=== PATIENT | male | born 1950 | race Caucasian/White ===

== ENCOUNTER 2020-12-01 19:26 | Inpatient (IN) | payer MEDICARE, BC, SELFPAY ==
[2020-12-01 19:27] VITALS: BP 81/44; PULSE 85; RESP 16; TEMP 36.9; O2SAT 100; BMI 33.9
[2020-12-01] MEDS: 0.9% Normal Saline 1,000 ML 1000 ML IV (19:50)
--- NOTE | 2020-12-01 19:51 | EKG12_ITS ---
Test Reason : DYSRHYTHMIA Blood Pressure : / mmHG Vent. Rate : 081 BPM Atrial Rate : 081 BPM P-R Int : 174 ms QRS Dur : 094 ms QT Int : 396 ms P-R-T Axes : 020 013 059 degrees QTc Int : 460 ms Normal sinus rhythm Nonspecific T wave abnormality Abnormal ECG Confirmed by VALDO BRINK, DIMAS ([id number]), material expeditor CAMERON WHALNE ([id number]) on 12/04/2020 8:58:30 AM Referred By: LIZZ Confirmed By:DIMAS LYLE MD
[2020-12-01 20:27] LABS: Absolute Lymphocyte Count 3.44 X10^3/uL (0.83-4.51); Absolute Neutrophil Count 14.2 X10^3/uL (2.0-7.7); Basophil# 0.11 X10^3/uL; Basophil% 0.5 % (0-1); Eosinophil# 0.29 X10^3/uL; Eosinophils% 1.4 % (0-5); Hematocrit 45.5 % (40-54); Hemoglobin 15.4 g/dL (13.0-16.5); Lymphocyte # 3.44 X10^3/ul (0.83-4.51); Mean Corp Hgb Conc 33.8 g/dL (32-36); Mean Corpuscular Hgb 30.3 pg (27.0-32.0); Mean Corpuscular Volume 89.4 fL (80-94); Mean Platelet Vol. 9.4 fl (6.2-12.0); Monocyte# 2.03 X10^3/uL; NRBC Flagged by Analyzer 0 % (0-5); Neutrophil # 14.24 X10^3/uL (2.7-7.7); Neutrophil % 70.3 % (47-70); POSITIVE DIFFERENTIAL YES; Platelet Count 347 K/mm3 (150-450); RBC Distribution Width CV 13.7 % (11.6-14.6); RBC Distribution Width SD 44.6 fl (35.1-43.9); Red Blood Count 5.09 M/mm3 (4.6-6.2); White Blood Count 20.3 K/mm3 (4.4-11.0)
[2020-12-01 20:42] VITALS: BP 85/53; PULSE 73; RESP 11; O2SAT 97
[2020-12-01] MEDS: 0.9% Normal Saline 1,000 ML 999 ML IV ×2 (20:42→22:41)
[2020-12-01 20:50] LABS: Differential Indicated SCAN CRITERIA MET
[2020-12-01 21:03] LABS: Lactic Acid 1.5 mmol/L (0.4-1.9)
[2020-12-01 21:10] VITALS: BP 96/56; PULSE 74; RESP 15; O2SAT 98
[2020-12-01 21:13] LABS: Differential Comment SCANNED
[2020-12-01 21:16] LABS: ALB/GLOB Ratio 0.9 RATIO (0.9-2.4); AST(SGOT) 17 U/L (15-37); Alanine Aminotransfer ALT/SGPT 26 U/L (16-61); Albumin, Serum 3.6 g/dL (3.2-5.0); Alkaline Phosphatase 107 U/L (45-117); Anion Gap 17 (5-15); BUN 96 mg/dL (7-18); BUN/Creat Ratio 12.5 RATIO (10-20); Chloride 94 mmol/L (98-107); Creatinine, Serum 7.68 mg/dL (0.70-1.30); EST Glomerular Filtration Rate 8 mL/min (>60); Est Glom Filt Rate - Afr Amer 9 mL/min (>60); Estimated Creatinine Clearance 10.24 ml/min; Globulin 4.2 g/dL (2.2-4.2); Glucose 98 mg/dL (74-106); Potassium 3.8 mmol/L (3.5-5.1); Protein, Total 7.8 g/dL (6.4-8.2); Sodium Level 128 mmol/L (136-145)
--- NOTE | 2020-12-01 21:23 | ED.RN ---
creat of 7.6 reported to . verbalizes understanding
[2020-12-01] MEDS: Lidocaine Jelly 2% 20 ML Syringe (URO-JET) 20 APPLIC TOPICAL (21:56)
--- NOTE | 2020-12-01 22:19 | ED.DCSUM_ITS ---
- ER Visit Summary Date of Service: 12/01/20 Chief Complaint: Diarrhea History of Present Illness: The patient is a [address] Uribe. He reports he has diarrhea that began 4 days ago. States he is having this approximately 6 times per day. Denies any blood in stools or black tarry stools. He denies abdominal pain. States he had nausea without vomiting. Patient denies sick contacts. Has not been camping out of the country. No possible bad food exposure. Does not drink well water. No recent antibiotic use. Patient reports that he is lightheaded. He has not passed out. Also complains of generalized weakness. Physical Examination: Vitals: 98.5, 81/44, 85, 16, 100% on room air which not hypoxic. General: Well-nourished and well-developed. Head: Normocephalic atraumatic. Neck: Supple, no lymphadenopathy. No JVD. Nontender. Cardiovascular: Regular rate and rhythm. No murmurs. Respiratory: No respiratory distress. Clear to auscultation bilaterally. Abdominal: Soft, nontender, nondistended, normal bowel sounds. No guarding, rebound, or peritoneal signs. Back: Nontender. Extremities: Nontender, no edema. Skin: Normal color, no rash. Neurologic: Alert and oriented ?3. Cranial nerves II through XII are intact. Normal strength and sensation. Psych: Normal affect. Test Results: CBC shows a white count of 20.3 with 17 segmented neutrophils. Chem-7 shows a sodium 128, chloride 94, CO2 17, BUN 96, creatinine 7.68. Troponin is negative. Lactic acid is 1.5. Emergency Department Course and Treatment: Patient was given 2 L of normal saline. Systolic blood pressure is now 105. He had a Ferreira catheter placed to rule out postobstructive source of his renal failure. He has only had 100 cc of urine out. Treatment Plan: Patient was discussed with Dr. Alvarenga. He will be admitted to the hospital for further evaluation and treatment. Disposition: Admitted in improved condition. Impression: 1. Acute renal failure. 2. Diarrhea. 3. Leukocytosis. This note was generated with [employer] software. It may contain incorrect words, spelling, and punctuation that were not noted in review of the chart prior to signing ED Disposition - Plan for ED Patient: Referrals: Ankush Uribe [Primary Care Provider] -
[2020-12-01 22:42] VITALS: BP 107/61; PULSE 79; RESP 18; TEMP 36.8; O2SAT 97
[2020-12-01 23:16] VITALS: BMI 32.7
--- NOTE | 2020-12-01 23:23 | US_ITS ---
STUDY: RENAL ULTRASOUND - COMPLETE REASON FOR EXAM: Male, 69 years old. get[place]w TECHNIQUE: Ultrasound evaluation of the kidneys was performed with real-time and static medina-scale imaging. COMPARISON: None. FINDINGS: RIGHT KIDNEY: Normal location of the right kidney, which is normal in size. The right kidney measures 12.8 cm x 5.5 cm x 6 cm. There is a normal cortex of the right kidney. The renal cortex measures 2.8 cm. There is no right renal mass or cyst. There are no right renal calculi. There is no right hydronephrosis. DISTAL RIGHT URETER: There is non-visualization of the distal right ureter. There is no demonstrated right ureterovesical junction calculus. There is no demonstrated right ureteral jet. LEFT KIDNEY: Normal location of the left kidney, which is normal in size. The left kidney measures 11.6 x 5.3 cm x 6.1 cm. There is a normal cortex of the left kidney. The renal cortex measures 2.1 cm. There is no left renal mass or cyst. There are no left renal calculi. There is no left hydronephrosis. DISTAL LEFT URETER: There is non-visualization of the distal left ureter. There is no demonstrated left ureterovesical junction calculus. There is no demonstrated left ureteral jet. BLADDER: The urinary bladder was not adequately distended for appropriate assessment. US/Kidney and Bladder IMPRESSION: Normal ultrasound of the kidneys . Electronically Signed: Beck Ramsey MD at 13:17 EDT , Service support ,
[2020-12-01 23:46] VITALS: BP 110/62; PULSE 80; RESP 16; TEMP 36.7; O2SAT 98
--- NOTE | 2020-12-01 23:50 | PCM.HP.STD ---
Problem List (1) LAKSHMI (acute kidney injury) Status: Acute (2) Diarrhea Status: Acute (3) Dehydration Status: Acute (4) Hypotension Status: Acute History of Present Illness Date of Admission: 12/01/20 Chief Complaint: fatigue The patient is a 69 year old M with a significant history of hypertension who presents emergency department with progressively worsening fatigue that began about 4 days prior to presentation. Patient reported to his daughter who is a physician that he has not had this level of fatigue before. Further patient has had diarrhea. He report at least 6 loose stools per day. He has poor appetite. He denied nausea or vomiting. Reports decreased urine output and decreased intake. Past Medical History Medical History: Medical History (Last Updated 12/01/20 @ 23:[address] Abdoulaye Alvarenga MD) HTN (hypertension) I10 Allergies No Known Allergies Allergy (Verified 12/01/20 19:41) Home Medications: Ambulatory Orders Medication Instructions Recorded Lisinopril [Zestril] 20 mg PO DAILY 12/01/20 Multivitamin [One-Daily 1 tablet PO DAILY 12/01/20 Multi-Vitamin] Surgical History: - - Vasectomy Smoking Status: Never smoker Tobacco Use: Non-smoker Alcohol: Occasional - *Family History Maternal History Items: Heart Disease, Hypertension Paternal History Items: Cancer - Prostate Review of Systems Constitutional: Reports: Fatigue. Denies: Chills, Fever, Weight Change HEENT: Denies: Head Aches, Sinus Congestion, Sinus Drainage Cardiovascular: Denies: Chest Pain, Palpitations Respiratory: Denies: Cough, Shortness of breath at rest, Sputum production Gastrointestinal: Reports: Diarrhea. Denies: Abdominal Pain, Nausea, Vomiting Genitourinary: Denies: Dysuria Musculoskeletal: Denies: Joint Pain, Joint Tenderness Skin: Denies: Rash, Wounds Neurological: Denies: Numbness, Tingling, Focal weakness Psychiatric: Denies: Anxiety, Depression, Homicidal Ideations, Suicidal Ideations Hematologic/ Lymphatic: Denies: Easy Bruising, Easy Bleeding VTE Information - Inpt Only VTE Present on Admission: No VTE Mechan Device Prophylaxis: None VTE Pharm Prophylaxis ordered?: Yes Patient Problems: Active and Suspected Problems (Last Updated 12/01/20 @ 23:[address] Abdoulaye Alvarenga MD) LAKSHMI (acute kidney injury) (Acute) Diarrhea (Acute) Dehydration (Acute) Hypotension (Acute) - Physical Exam Vitals/I&O's: Vital Signs Temp Pulse Resp BP Pulse Ox 98.0 F 80 16 110/62 98 12/01/20 23:46 12/01/20 23:46 12/01/20 23:46 12/01/20 23:46 12/01/20 23:46 Oxygen Delivery Method Room Air Weight: 109.406 kg Body Mass Index (BMI) 32.7 Intake and Output for Last 24 Hours 11/29/20 11/30/20 12/01/20 23:59 23:59 23:59 Intake Total 3000 / 3000 Balance 3000 / 3000 General: Alert, Oriented x3, Cooperative HEENT: Atraumatic, PERRLA, EOMI, Normocephalic Neck: Supple, No JVD, Negative Carotid Bruits Lungs: Clear to auscultation, Normal air movement Cardiovascular: Regular rate, No murmurs Abdomen: Bowel Sounds Present, Soft, Non Tender Extremities: No edema, Capillary Refill Less than 3 Seconds Skin: No rashes, No breakdown Musculoskeletal: No Tenderness to Palpation of Joints or Extremities Neurological: Cranial nerves II-XII grossly intact Psych/Mental Status: Normal Affect, Appropriate Microbiology Past 72 Hours 12/01/20 19:50 Mucosa - Nose SARS-CoV-2 Antigen (Rapid) - Final Laboratory Results 12/01/20 20:15: WBC 20.3 H, RBC 5.09, Hgb 15.4, Hct 45.5, MCV 89.4, MCH 30.3, MCHC 33.8, RDW Std Deviation 44.6 H, RDW Coeff of Genna 13.7, Plt Count 347, MPV 9.4, Immature Gran % (Auto) 0.800, Neut % (Auto) 70.3 H, Lymph % (Auto) 17.0 L, [place] % (Auto) 10.0, Eos % (Auto) 1.4, Baso % (Auto) 0.5, Absolute Neuts (auto) 14.2 H, Absolute Lymphs (auto) 3.44, Nucleated RBC % 0, Differential Comment SCANNED, Diff Path Review December12/01/20 20:15: Sodium 128 L, Potassium 3.8, Chloride 94 L, Carbon Dioxide 17.0 L, Anion Gap 17 H, BUN 96 H, Creatinine 7.68 H*, Estim Creat Clear Calc 10.24, Est GFR (MDRD) Af Amer 9 L, Est GFR (MDRD) Non-Af 8 L, BUN/Creatinine Ratio 12.5, Glucose 98, Calcium 9.0, Total Bilirubin 0.30, AST 17, ALT 26, Alkaline Phosphatase 107, Total Protein 7.8, Albumin 3.6, Globulin 4.2, Albumin/Globulin Ratio 0.9 12/01/20 20:15: Lactic Acid 1.5 12/01/20 20:39: Troponin I < 0.015 Current Medications Acetaminophen (Acetaminophen 325 Mg Tablet) 650 mg PO Q6H PRN PRN PRN Reason: Pain Score 1-10/Temp > 100.7 F Heparin Sodium (Porcine) (Heparin Injection (Vial) 5,000 Unit/Ml Vial) 5,000 unit SC Q8 MEGAN Sodium Chloride () 1,000 mls @ 100 mls/hr IV .Q10H MEGAN Sodium Chloride () 250 mls @ 15 mls/hr IV .[id number] PRN PRN Reason: Saline Flush Melatonin (Melatonin 3 Mg Tablet) 3 mg PO QHS PRN PRN PRN Reason: INSOMNIA Ondansetron HCl (Ondansetron 4 Mg/2 Ml Vial) 4 mg IV Q8H PRN PRN PRN Reason: NAUSEA/VOMITING Sodium Chloride (0.9% Saline Lock 10 Ml Syringe) 10 - 40 ml IV UD PRN PRN Reason: SALINE FLUSH Assessment/Plan All Active Problems (Last Updated 12/01/20 @ 23:[address] Abdoulaye Alvarenga MD) LAKSHMI (acute kidney injury) (Acute) Diarrhea (Acute) Dehydration (Acute) Hypotension (Acute) LAKSHMI On Presentation creatinine was at 7.68. His daughter who is a physician and who reviewed the patient outpatient labs reported that patient creatinine in May 2020 was 1.08. Urine is 96. BUN over creatinine is 12.5. Community records were reviewed. No creatinine on file except what daughter presented. Likely prerenal and trending to intrinsic renal. Received 2 L normal saline bolus at emergency department. Discussed emergent department to give another 1 L bolus of normal saline. We will put patient on normal saline 100 MLS per hour. Avoid nephrotoxins. Hold home lisinopril Urine electrolytes ordered Ultrasound of kidney and bladder ordered. Acute Diarrhea Enteric pathogen panel and C. difficile ordered emergency department; follow. Hypovolemic hyponatremia Sodium of 126 on presentation IV hydration as above Trend BMP Hypotension Likely secondary to dehydration IV hydration as above Trend blood pressures. Hold home lisinopril. Leukocytosis Likely secondary to dehydration Trend CBC DVT prophylaxis Subcutaneous heparin ordered. Inpatient E&M: 25246 Init Hosp L3
[2020-12-01] MEDS: 0.9% Normal Saline 1,000 ML 100 ML IV (23:53)
[2020-12-02 00:41] LABS: Urine Sodium 14 mmol/L (Not Establ.)
[2020-12-02] MEDS: Heparin Injection (Vial) 5,000 UNIT/ML VIAL 5000 UNIT SC ×3 (06:50→21:06)
[2020-12-02 07:48] LABS: Anion Gap 16 (5-15); BUN 95 mg/dL (7-18); BUN/Creat Ratio 14.2 RATIO (10-20); Calcium,Total 8.2 mg/dL (8.5-10.1); Chloride 103 mmol/L (98-107); Creatinine, Serum 6.69 mg/dL (0.70-1.30); EST Glomerular Filtration Rate 9 mL/min (>60); Est Glom Filt Rate - Afr Amer 11 mL/min (>60); Estimated Creatinine Clearance 11.76 ml/min; Glucose 85 mg/dL (74-106); Potassium 3.8 mmol/L (3.5-5.1); Sodium Level 134 mmol/L (136-145)
[2020-12-02 08:38] VITALS: BP 91/53; PULSE 76; RESP 18; TEMP 36.7; O2SAT 95
[2020-12-02] MEDS: 0.9% Normal Saline 1,000 ML 100 ML IV (08:46)
[2020-12-02 09:09] VITALS: O2SAT 93
[2020-12-02 10:49] LABS: Absolute Lymphocyte Count 2.92 X10^3/uL (0.83-4.51); Absolute Neutrophil Count 12.7 X10^3/uL (2.0-7.7); Basophil# 0.09 X10^3/uL; Basophil% 0.5 % (0-1); Differential Indicated SCAN CRITERIA MET; Eosinophil# 0.19 X10^3/uL; Eosinophils% 1.1 % (0-5); Hematocrit 44.5 % (40-54); Hemoglobin 13.7 g/dL (13.0-16.5); Lymphocyte # 2.92 X10^3/ul (0.83-4.51); Lymphocyte % 16.2 % (19-41); Mean Corp Hgb Conc 30.8 g/dL (32-36); Mean Corpuscular Volume 94.3 fL (80-94); Mean Platelet Vol. 9.4 fl (6.2-12.0); Monocyte# 1.91 X10^3/uL; Monocyte% 10.6 % (0-10); NRBC Flagged by Analyzer 0 % (0-5); Neutrophil # 12.72 X10^3/uL (2.7-7.7); Neutrophil % 70.8 % (47-70); POSITIVE COUNT YES; POSITIVE DIFFERENTIAL YES; Platelet Count 209 K/mm3 (150-450); RBC Distribution Width SD 48.2 fl (35.1-43.9); Red Blood Count 4.72 M/mm3 (4.6-6.2)
--- NOTE | 2020-12-02 11:15 | CASEMGMT ---
RN GUI Face to Face with patient for initial transition planning/care coordination assessment. RN CM introduced self and role at [facility]. Patient lying in bed, alert and oriented. Patient willing to participate in assessment and is able to answer all questions appropriately. Care providers, pharmacy, and demographics verified. Patient wishes to discharge home, denies need for home health at this time. Patient states he has no further needs or concerns at this time. CM to follow for discharge planning needs that may arise. PCP: Rony Specialists: none Preferred Pharmacy: [facility] Insurance: Alexandra LYONS Prescription Benefit: yes Living Will/HPOA: none LNOK: daughter Living Arrangements: Patient lives in a basement suite in daughter's home with no steps to enter. Patient states he is independent at home. Transportation: self/daughter DME/HHC: Patient denies DME or previous HHC. Disposition Plan: Patient to discharge home with family support and follow-up plans in place. Veronica MCGEE, RN, CM
--- NOTE | 2020-12-02 11:19 | PCM.PN.HOSP ---
Subjective Subjective: Feels a little bit better today, he didnt get any sleep overnight and he does want to stay here any longer than he has to. No issues overnight Objective Data Objective Data Vital Signs: Vital Signs Temp Pulse Resp BP Pulse Ox 98.0 F 76 18 91/53 L 93 12/02/20 08:38 12/02/20 08:38 12/02/20 08:38 12/02/20 08:38 12/02/20 09:09 Oxygen Delivery Method Room Air Weight: 241 lb 3.2 oz Body Mass Index (BMI) 32.7 Intake & Output: Intake and Output for Last 24 Hours 12/01/20 12/02/20 12/03/20 03:59 03:59 03:59 Intake Total 3000 / 3000 888.33 / 888.33 Output Total 200 / 200 Balance 2800 / 2800 888.33 / 888.33 Lab / Micro Data Result Diagrams: 12/02/20 06:30 12/02/20 06:30 Labs: Laboratory Results - last 24 hr 12/01/20 12/01/20 12/01/20 20:15 20:15 20:15 WBC 20.3 H RBC 5.09 Hgb 15.4 Hct 45.5 MCV 89.4 MCH 30.3 MCHC 33.8 RDW Std Deviation 44.6 H RDW Coeff of Genna 13.7 Plt Count 347 MPV 9.4 Immature Gran % (Auto) 0.800 Neut % (Auto) 70.3 H Lymph % (Auto) 17.0 L [place] % (Auto) 10.0 Eos % (Auto) 1.4 Baso % (Auto) 0.5 Absolute Neuts (auto) 14.2 H Absolute Lymphs (auto) 3.44 Nucleated RBC % 0 Differential Comment SCANNED Diff Path Review May foll Sodium 128 L Potassium 3.8 Chloride 94 L Carbon Dioxide 17.0 L Anion Gap 17 H BUN 96 H Creatinine 7.68 H* Estim Creat Clear Calc 10.24 Est GFR (MDRD) Af Amer 9 L Est GFR (MDRD) Non-Af 8 L BUN/Creatinine Ratio 12.5 Glucose 98 Lactic Acid 1.5 Calcium 9.0 Total Bilirubin 0.30 AST 17 ALT 26 Alkaline Phosphatase 107 Troponin I Total Protein 7.8 Albumin 3.6 Globulin 4.2 Albumin/Globulin Ratio 0.9 Ur Random Sodium Urine Creatinine 12/01/20 12/02/20 12/02/20 20:39 00:00 06:30 WBC 18.0 H RBC 4.72 Hgb 13.7 Hct 44.5 MCV 94.3 H D MCH 29.0 MCHC 30.8 L D RDW Std Deviation 48.2 H RDW Coeff of Genna 14.0 Plt Count 209 MPV 9.4 Immature Gran % (Auto) 0.800 Neut % (Auto) 70.8 H Lymph % (Auto) 16.2 L [place] % (Auto) 10.6 H Eos % (Auto) 1.1 Baso % (Auto) 0.5 Absolute Neuts (auto) 12.7 H Absolute Lymphs (auto) 2.92 Nucleated RBC % 0 Differential Comment Diff Path Review Sodium Potassium Chloride Carbon Dioxide Anion Gap BUN Creatinine Estim Creat Clear Calc Est GFR (MDRD) Af Amer Est GFR (MDRD) Non-Af BUN/Creatinine Ratio Glucose Lactic Acid Calcium Total Bilirubin AST ALT Alkaline Phosphatase Troponin I < 0.015 Total Protein Albumin Globulin Albumin/Globulin Ratio Ur Random Sodium 14 Urine Creatinine 345.00 12/02/20 06:30 WBC RBC Hgb Hct MCV MCH MCHC RDW Std Deviation RDW Coeff of Genna Plt Count MPV Immature Gran % (Auto) Neut % (Auto) Lymph % (Auto) [place] % (Auto) Eos % (Auto) Baso % (Auto) Absolute Neuts (auto) Absolute Lymphs (auto) Nucleated RBC % Differential Comment Diff Path Review Sodium 134 L Potassium 3.8 Chloride 103 Carbon Dioxide 15.0 L Anion Gap 16 H BUN 95 H Creatinine 6.69 H Estim Creat Clear Calc 11.76 Est GFR (MDRD) Af Amer 11 L Est GFR (MDRD) Non-Af 9 L BUN/Creatinine Ratio 14.2 Glucose 85 Lactic Acid Calcium 8.2 L Total Bilirubin AST ALT Alkaline Phosphatase Troponin I Total Protein Albumin Globulin Albumin/Globulin Ratio Ur Random Sodium Urine Creatinine Micro: Microbiology 12/01/20 03:50 Stool Enteric Bacteriology - Final 12/01/20 03:50 Stool C. difficile DNA Amplification - Final 12/01/20 19:50 Mucosa - Nose SARS-CoV-2 Antigen (Rapid) - Final Physical Exam Const alert, oriented x3 and no apparent distress HEENT Head and Scalp: normocephalic Mouth: dry mucous membranes Eyes PERRL, EOMs intact bilaterally and conjunctivae normal Neck supple and no JVD Resp normal respiratory effort and clear to auscultation bilaterally Auscultation: diminished lung sounds; Negative for crackles, rales, rhonchi or wheezes Cardio regular rate, regular rhythm, S1 normal heart sound, S2 normal heart sound and no murmurs GI soft to palpation, non-tender, non-distended and hepatosplenomegaly Extremity normal to inspection and no clubbing, cyanosis or edema Skin no rashes or lesions noted Neuro moves all extremities, no focal motor deficits and no sensory deficits noted Psych affect normal Assessment & Plan Assessment/Plan (1) LAKSHMI (acute kidney injury): Status: Acute Code(s): N17.9 - Acute kidney failure, unspecified (2) Diarrhea: Status: Acute Code(s): R19.7 - Diarrhea, unspecified Qualifiers: Diarrhea type: presumed infectious Qualified Code(s): R19.7 - Diarrhea, unspecified (3) Dehydration: Status: Acute Code(s): E86.0 - Dehydration (4) Hypotension: Status: Acute Code(s): I95.9 - Hypotension, unspecified Qualifiers: Hypotension type: hypotension due to hypovolemia Qualified Code(s): I95.89 - Other hypotension; E86.1 - Hypovolemia (5) Hyponatremia: Status: Acute Code(s): E87.1 - Hypo-osmolality and hyponatremia (6) Neutrophilic leukocytosis: Status: Acute Code(s): D72.9 - Disorder of white blood cells, unspecified Plan: 1. LAKSHMI and hypotension secondary to diarrhea and dehydration/neutrophilic leukocytosis/hypovolemic hyponatremia -Per the daughter who is an ASSISTANT PROFESSOR OF BUSINESS, his creatinine is normal at baseline, on admission was 7.68 and he is down to 6.69 today -We will increase fluids 150 cc/h as his urine output has only been at 0.08 cc/kg/h -C. difficile was negative -Sodium has improved from 1 28-1 34, will continue to monitor -Mean arterial pressures have maintained over 65 since admission we will continue to monitor and hold his lisinopril DVT: Heparin Inpatient E&M: [id number] [facility] Hosp L2
[2020-12-02 13:21] LABS: Pathologist Review Reviewed
[2020-12-02 15:00] VITALS: BP 128/66; PULSE 74; RESP 18; TEMP 36.6; O2SAT 99
--- NOTE | 2020-12-02 15:02 | CHAPLAIN ---
Type of Pastoral Visit _x__ Initial Visit ___ Follow-up Visit ___ On-call Visit ___ General Patient Visit ___ Spiritual Assessment ___ Family Conference ___ Bereavement ___ Rapid Response ___ Code Blue ___ Other (describe below) Pastoral Care Referral From _x__ Patient ___ Family ___ Nurse ___ Physician ___ Home Care Physical Therapist ___ Golf Shoe Spike Assembler ___ Other (describe below) Sacrament/Intervention ___ Active listening ___ Anointing ___ Hinduism ___ Bereavement ___ Communion ___ Tereza exploration ___ ___ Life review ___ Prayer ___ Reconciliation ___ Sacrament of Sick ___ Supportive presence ___ Wedding _x__ Other (describe below) Pastoral Comments patient is sitting in chair and using his ipad; pt states that he is fine and does not need additional support at this time
--- NOTE | 2020-12-02 15:55 | PCM.NTREPORT ---
Nutrition Therapy Report - History Nutrition Services has been consulted to:: Manage nutrient details of diet order Current diet / nutrition support order:: renal-general - Anthropometric Measurements Height:: 6 ft Weight:: 109.406 kg Body Mass Index (BMI):: 32.7 - Relevant Labs Relevant Labs:: WBC 18.0 K/mm3 (4.4-11.0) H 12/02/20 06:30 MCV 94.3 fL (80-94) H D 12/02/20 06:30 MCHC 30.8 g/dL (32-36) L D 12/02/20 06:30 RDW Std Deviation 48.2 fl (35.1-43.9) H 12/02/20 06:30 Neut % (Auto) 70.8 % (47-70) H 12/02/20 06:30 Lymph % (Auto) 16.2 % (19-41) L 12/02/20 06:30 [place] % (Auto) 10.6 % (0-10) H 12/02/20 06:30 Absolute Neuts (auto) 12.7 X10^3/uL (2.0-7.7) H 12/02/20 06:30 Sodium 134 mmol/L (136-145) L 12/02/20 06:30 Chloride 94 mmol/L (98-107) L 12/01/20 20:15 Carbon Dioxide 15.0 mmol/L (21.0-32.0) L 12/02/20 06:30 Anion Gap 16 (5-15) H 12/02/20 06:30 BUN 95 mg/dL (7-18) H 12/02/20 06:30 Creatinine 6.69 mg/dL (0.70-1.30) H 12/02/20 06:30 Est GFR (MDRD) Af Amer 11 mL/min (>60) L 12/02/20 06:30 Est GFR (MDRD) Non-Af 9 mL/min (>60) L 12/02/20 06:30 Calcium 8.2 mg/dL (8.5-10.1) L 12/02/20 06:30 - Assessment Food / Nutrition-Related History:: Describes decreased appetite w/very poor PO intake for ~4-5 days KILN STOKER d/t feeling unwell. Feels he has lost about 10# w/ UBW 250# and CBW 241.2#-8.8#/3.5% wt loss <1 week which is significant for acute malnutrition. Pt states he was able to eat breakfast and lunch this date. No special diet followed at home normally. - Nutrition Diagnosis Problem / Etiology / Signs & Symptoms (PES):: severe, acute malnutrition r/t inadequate energy intake during acute illness as evidenced by unintentional wt loss of 8.8#/3.5% <1 week, estimated PO intake meeting <50% of estimated nutritional needs x <1 week. Evidence of Malnutrition Exists:: Yes Severe PCM:: Acute Illness - Nutrition Intervention Nutrition Prescription:: [id number] calories/day (1.3xRMR). 77-87 g protein/day (0.8g/kg). 2600mL (1mL/calorie) - Food / Nutrient Delivery Interventions Summary of nutrition intervention:: Pt w/ no nutritional concerns, declines further nutrition intervention at this time. Nutrition support ordered as / adjusted to:: will change diet to cardiac as renal diet restrictions not indicated at this time Nutrition education provided?: No - MNT Monitoring Further MNT monitoring and evaluation required?: Yes MNT Follow-up in:: 3-5 days
[2020-12-02 15:58] VITALS: BMI 32.7
[2020-12-02] MEDS: 0.9% Normal Saline 1,000 ML 150 ML IV (17:58)
[2020-12-02 21:00] VITALS: BP 137/75; PULSE 84; RESP 20; TEMP 36.7; O2SAT 98
[2020-12-02] MEDS: MELATONIN 3 MG TABLET PO (21:06)
[2020-12-03] MEDS: 0.9% Normal Saline 1,000 ML 150 ML IV ×2 (00:52→07:21)
[2020-12-03 02:19] VITALS: BP 117/64; PULSE 83; RESP 20; TEMP 36.9; O2SAT 99
[2020-12-03] MEDS: Heparin Injection (Vial) 5,000 UNIT/ML VIAL 5000 UNIT SC (06:40)
[2020-12-03 07:12] LABS: Absolute Lymphocyte Count 3.16 X10^3/uL (0.83-4.51); Absolute Neutrophil Count 9.4 X10^3/uL (2.0-7.7); Basophil# 0.08 X10^3/uL; Basophil% 0.6 % (0-1); Eosinophil# 0.17 X10^3/uL; Eosinophils% 1.2 % (0-5); Hematocrit 41.5 % (40-54); Hemoglobin 13.4 g/dL (13.0-16.5); Lymphocyte # 3.16 X10^3/ul (0.83-4.51); Lymphocyte % 22.1 % (19-41); Mean Corp Hgb Conc 32.3 g/dL (32-36); Mean Corpuscular Hgb 29.6 pg (27.0-32.0); Mean Corpuscular Volume 91.6 fL (80-94); Mean Platelet Vol. 9.4 fl (6.2-12.0); Monocyte# 1.45 X10^3/uL; Monocyte% 10.1 % (0-10); NRBC Flagged by Analyzer 0 % (0-5); Neutrophil # 9.35 X10^3/uL (2.7-7.7); Neutrophil % 65.2 % (47-70); Platelet Count 235 K/mm3 (150-450); RBC Distribution Width CV 13.9 % (11.6-14.6); RBC Distribution Width SD 46.6 fl (35.1-43.9); Red Blood Count 4.53 M/mm3 (4.6-6.2); White Blood Count 14.3 K/mm3 (4.4-11.0)
[2020-12-03 07:38] LABS: Anion Gap 12 (5-15); BUN 99 mg/dL (7-18); BUN/Creat Ratio 17.5 RATIO (10-20); Calcium,Total 8.2 mg/dL (8.5-10.1); Chloride 110 mmol/L (98-107); Creatinine, Serum 5.66 mg/dL (0.70-1.30); EST Glomerular Filtration Rate 11 mL/min (>60); Est Glom Filt Rate - Afr Amer 13 mL/min (>60); Glucose 87 mg/dL (74-106); Sodium Level 134 mmol/L (136-145)
[2020-12-03 08:18] VITALS: BP 130/59; PULSE 82; RESP 18; TEMP 36.4; O2SAT 98
[2020-12-03 08:25] VITALS: O2SAT 98
--- NOTE | 2020-12-03 10:41 | PCM.CONS.R ---
Assessment & Plan Assessment/Plan (1) LAKSHMI (acute kidney injury): Status: Acute Code(s): N17.9 - Acute kidney failure, unspecified Plan: Likely prerenal. Serum creatinine is improving with IV fluids continue IV fluids. Renal ultrasound is normal. Check a UA. (2) Hyponatremia: Status: Acute Code(s): E87.1 - Hypo-osmolality and hyponatremia Plan: Minimal with fluid depletion continue normal saline (3) Metabolic acidosis: Status: Acute Code(s): E87.2 - Acidosis Plan: Add p.o. bicarb should improve with improvement in renal failure Thanks for consult will follow up. HPI Consult Data Date of Consult: 12/03/20 HPI Narrative HPI Narrative: RENE STOREY, is a 69 M with a past medical history of hypertension who presents progressively worsening fatigue associated with diarrhea about 6 stools a day no hematochezia no melena no nausea no vomiting. He also had some decreased urine output and decreased p.o. intake. He denies ever seeing a professor of biblical studies or urologist in the past. He was taking lisinopril at home. [facility] Medical History (Updated 12/03/20 @ 10:[address] Yang Henderson MD) HTN (hypertension) Home Medications lisinopril 20 mg PO DAILY 12/01/20 [History Last Taken 12/01/20 10:00] multivitamin 1 tablet PO DAILY 12/01/20 [History Last Taken 12/01/20 10:00] Allergy/AdvReac Type Severity Reaction Status Date / Time No Known Allergies Allergy Verified 12/01/20 19:41 Social History Smoking Status: Never smoker ROS ROS Narrative Review of systems otherwise negative. The patient denies chest pain shortness of breath headache fever chills focal weakness dysuria hematuria. Physical Exam Const alert and no apparent distress General Appearance: comfortable HEENT normocephalic HEENT Narrative: atraumatic Neck General: normal visual inspection and trachea midline Resp normal respiratory effort and clear to auscultation bilaterally Cardio regular rate, regular rhythm, S1 normal heart sound and S2 normal heart sound GI soft to palpation and non-tender GI Narrative: obese Extremity no clubbing, cyanosis or edema Neuro Sensorium / Orientation: awake and alert Lab / Micro Data Result Diagrams: 12/03/20 07:05 12/03/20 07:05 Labs: Laboratory Results - last 24 hr 12/01/20 12/02/20 12/03/20 20:15 06:30 07:05 WBC 18.0 H 14.3 H RBC 4.72 4.53 L Hgb 13.7 13.4 Hct 44.5 41.5 MCV 94.3 H D 91.6 MCH 29.0 29.6 MCHC 30.8 L D 32.3 RDW Std Deviation 48.2 H 46.6 H RDW Coeff of Genna 14.0 13.9 Plt Count 209 235 MPV 9.4 9.4 Immature Gran % (Auto) 0.800 0.800 Neut % (Auto) 70.8 H 65.2 Lymph % (Auto) 16.2 L 22.1 [place] % (Auto) 10.6 H 10.1 H Eos % (Auto) 1.1 1.2 Baso % (Auto) 0.5 0.6 Absolute Neuts (auto) 12.7 H 9.4 H Absolute Lymphs (auto) 2.92 3.16 Nucleated RBC % 0 0 [address] Review Reviewed December Sodium Potassium Chloride Carbon Dioxide Anion Gap BUN Creatinine Estim Creat Clear Calc Est GFR (MDRD) Af Amer Est GFR (MDRD) Non-Af BUN/Creatinine Ratio Glucose Calcium 12/03/20 07:05 WBC RBC Hgb Hct MCV MCH MCHC RDW Std Deviation RDW Coeff of Genna Plt Count MPV Immature Gran % (Auto) Neut % (Auto) Lymph % (Auto) [place] % (Auto) Eos % (Auto) Baso % (Auto) Absolute Neuts (auto) Absolute Lymphs (auto) Nucleated RBC % Diff Path Review Sodium 134 L Potassium 4.0 Chloride 110 H Carbon Dioxide 12.0 L Anion Gap 12 BUN 99 H Creatinine 5.66 H Estim Creat Clear Calc 13.90 Est GFR (MDRD) Af Amer 13 L Est GFR (MDRD) Non-Af 11 L BUN/Creatinine Ratio 17.5 Glucose 87 Calcium 8.2 L Micro: Microbiology 12/01/20 03:50 Enteric Bacteriology - Final Stool C. difficile DNA Amplification - Final Radiology Impression Renal Ultrasound 12/01/20 23:23 IMPRESSION: Normal ultrasound of the kidneys . Electronically Signed: Beck Ramsey MD at 13:17 EDT , Service support ,
--- NOTE | 2020-12-03 11:33 | NURSING ---
This nurse talked with patients daughter and patient really wanting to leave today. this nurse will talk with Dr. Nava about this.
[2020-12-03 12:32] LABS: Pathologist Review Reviewed
[2020-12-03 12:41] LABS: Urine Chloride 19 mmol/L (Not Establ.); Urine Sodium 25 mmol/L (Not Establ.)
--- NOTE | 2020-12-03 12:44 | PCM.DC ---
Discharge Instructions Outpatient Procedure Reason For Visit: LAKSHMI; DIARRHEA Diet Discharge Diet: No restrictions Activity Discharge Activity: Return to Normal Activity Dressing / Incision Call your doctor if you observe: Fever of 101 or Higher, Shortness of breath, Dizziness, Fainting spells, Swelling in the ankles, Chest pain and Increased palpitations (irregular heartbeat) Follow Up Care Test Results: Test results from this visit will be discussed in further detail at your follow-up appointment, if applicable. Discharge Plan Admission Admit Date/Time: 12/01/20 22:35 Primary Reason for Your Visit: Renal failure and dehydration Attending Provider: Maik Nava Primary Care Provider: Ankush Uribe Consulting Providers: Yang Henderson Instructions Patient Instructions: Dehydration, Acute Kidney Failure Additional Instructions / Restrictions: Follow-up with your PCP and nephrology in the next 3 to 5 days to monitor your renal function. Discharge Orders/Prescriptions Prescriptions: Continued multivitamin 1 EACH tablet 1 tablet PO DAILY RF: 0 Discontinued lisinopril 20 MG tablet 20 mg PO DAILY RF: 0 Referrals: Ankush Uribe [Primary Care Provider] - In 1 Week Disposition Patient Disposition: Home, self care
[2020-12-03 12:45] LABS: Osmolality, Urine 291 mOsm/KG
--- NOTE | 2020-12-03 14:04 | DS.PCM_ITS ---
Providers Date of Admission: 12/01/20 Primary Care Physician: Ankush Uribe Consultations 12/03/20 09:46 Consult: Nephrology Routine Consulting Provider: Yang Henderson Reason for Consult: lakshmi EMERGENT Consult: No MD Notified: Yes Date Notified:: 12/03/20 Time Notified: 09:47 Method of Notification: Answering Service Reason For Visit: LAKSHMI; DIARRHEA Diagnosis Discharge Diagnosis (1) LAKSHMI (acute kidney injury): Status: Acute Code(s): N17.9 - Acute kidney failure, unspecified (2) Hyponatremia: Status: Resolved Code(s): E87.1 - Hypo-osmolality and hyponatremia (3) Metabolic acidosis: Status: Acute Code(s): E87.2 - Acidosis (4) Neutrophilic leukocytosis: Status: Acute Code(s): D72.9 - Disorder of white blood cells, unspecified (5) Dehydration: Status: Resolved Code(s): E86.0 - Dehydration (6) Diarrhea: Status: Resolved Code(s): R19.7 - Diarrhea, unspecified Qualifiers: Diarrhea type: presumed infectious Qualified Code(s): R19.7 - Diarrhea, unspecified (7) Hypotension: Status: Resolved Code(s): I95.9 - Hypotension, unspecified Qualifiers: Hypotension type: hypotension due to hypovolemia Qualified Code(s): I95.89 - Other hypotension; E86.1 - Hypovolemia Medications at Discharge Home Medications multivitamin 1 tablet PO DAILY 12/01/20 sodium bicarbonate 650 mg PO BID #20 tab 12/03/20 Hospital Course Operations None Procedures None Summary of Care Provided Minutes Spent on Discharge: 35 Hospital Course: Per HPI: The patient is a 69 year old M with a significant history of hypertension who presents emergency department with progressively worsening fatigue that began about 4 days prior to presentation. Patient reported to his daughter who is a physician that he has not had this level of fatigue before. Further patient has had diarrhea. He report at least 6 loose stools per day. He has poor appetite. He denied nausea or vomiting. Reports decreased urine output and decreased intake. Hospital Course: 1. LAKSHMI with hypotension secondary to diarrhea and dehydration/neutrophilic leukocytosis/hypovolemic [id number] male presenting from home with worsening fatigue that had begun about 4 hours prior to presentation. He started having significant episodes of diarrhea and is on lisinopril at home for hypertension. When he presented he was found to be in acute renal failure with a creatinine over 7. He was started on IV fluids as this was felt likely to be prerenal and his creatinine did improve ultimately to 5.66 which is a little bit of a slower improvement than I would have liked. A UA, and urine electrolytes were obtained as well as a renal ultrasound. The renal ultrasound was normal. Nephrology was consulted and recommended the patient stay another day, I also encourage the patient to stay 1 more day for further monitoring however he refused. He does understand the risks and benefits of going home and still wants to go home today. He does have a metabolic acidosis as evidenced by bicarb of 12 today on discharge, however his urine output has picked up and therefore we will plan to discharge him on some sodium bicarbonate for the next few days to help with his acidosis. I also encouraged p.o. intake and to stop his lisinopril. He will need to follow-up with his PCP in 3 to 5 days and nephrology in 1 to 2 weeks. He will need outpatient labs for monitoring. As to the cause of his diarrhea, his C. difficile testing was negative. Physical Exam Const alert, oriented x3 and no apparent distress Eyes PERRL, EOMs intact bilaterally and conjunctivae normal Neck supple and no JVD Resp normal respiratory effort and clear to auscultation bilaterally Auscultation: diminished lung sounds; Negative for crackles, rales, rhonchi or wheezes Cardio regular rate, regular rhythm, S1 normal heart sound, S2 normal heart sound and no murmurs GI soft to palpation, non-tender, non-distended and hepatosplenomegaly Extremity normal to inspection and no clubbing, cyanosis or edema Skin no rashes or lesions noted Neuro moves all extremities, no focal motor deficits and no sensory deficits noted Psych affect normal ABG / Lab / Microbiology Data Result Diagrams: 12/03/20 07:05 12/03/20 07:05 Laboratory: Laboratory Results - last 24 hr 12/02/20 12/03/20 12/03/20 06:30 07:05 07:05 WBC 14.3 H RBC 4.53 L Hgb 13.4 Hct 41.5 MCV 91.6 MCH 29.6 MCHC 32.3 RDW Std Deviation 46.6 H RDW Coeff of Genna 13.9 Plt Count 235 MPV 9.4 Immature Gran % (Auto) 0.800 Neut % (Auto) 65.2 Lymph % (Auto) 22.1 [place] % (Auto) 10.1 H Eos % (Auto) 1.2 Baso % (Auto) 0.6 Absolute Neuts (auto) 9.4 H Absolute Lymphs (auto) 3.16 Nucleated RBC % [address] Review Reviewed Sodium 134 L Potassium 4.0 Chloride 110 H Carbon Dioxide 12.0 L Anion Gap 12 BUN 99 H Creatinine 5.66 H Estim Creat Clear Calc 13.90 Est GFR (MDRD) Af Amer 13 L Est GFR (MDRD) Non-Af 11 L BUN/Creatinine Ratio 17.5 Glucose 87 Calcium 8.2 L Urine Osmolality Ur Random Sodium Urine Creatinine Urine Potassium Urine Chloride 12/03/20 12/03/20 12/03/20 12:25 12:25 12:25 WBC RBC Hgb Hct MCV MCH MCHC RDW Std Deviation RDW Coeff of Genna Plt Count MPV Immature Gran % (Auto) Neut % (Auto) Lymph % (Auto) [place] % (Auto) Eos % (Auto) Baso % (Auto) Absolute Neuts (auto) Absolute Lymphs (auto) Nucleated RBC % Diff Path Review Sodium Potassium Chloride Carbon Dioxide Anion Gap BUN Creatinine Estim Creat Clear Calc Est GFR (MDRD) Af Amer Est GFR (MDRD) Non-Af BUN/Creatinine Ratio Glucose Calcium Urine Osmolality 291 Ur Random Sodium 25 Urine Creatinine 107.00 Urine Potassium 11.0 Urine Chloride 19 12/03/20 12:25 WBC RBC Hgb Hct MCV MCH MCHC RDW Std Deviation RDW Coeff of Genna Plt Count MPV Immature Gran % (Auto) Neut % (Auto) Lymph % (Auto) [place] % (Auto) Eos % (Auto) Baso % (Auto) Absolute Neuts (auto) Absolute Lymphs (auto) Nucleated RBC % Diff Path Review Sodium Potassium Chloride Carbon Dioxide Anion Gap BUN Creatinine Estim Creat Clear Calc Est GFR (MDRD) Af Amer Est GFR (MDRD) Non-Af BUN/Creatinine Ratio Glucose Calcium Urine Osmolality Ur Random Sodium Cancelled Urine Creatinine Urine Potassium Urine Chloride Microbiology: Microbiology 12/01/20 03:50 Stool Enteric Bacteriology - Final 12/01/20 03:50 Stool C. difficile DNA Amplification - Final 12/01/20 19:50 Mucosa - Nose SARS-CoV-2 Antigen (Rapid) - Final D/C Instructions Discharge Diet: No restrictions Discharge Activity: Return to Normal Activity Call your doctor if you observe: Fever of 101 or Higher, Shortness of breath, Dizziness, Fainting spells, Swelling in the ankles, Chest pain and Increased palpitations (irregular heartbeat) Meaningful Use Info Meaningful Use Diagnoses (Choose all that apply): None applicable Discharge Plan Admission Admit Date/Time: 12/01/20 22:35 Primary Reason for Your Visit: Renal failure and dehydration Attending Provider: Maik Nava Primary Care Provider: Ankush Uribe Consulting Providers: Yang Henderson Instructions Patient Instructions: Dehydration, Acute Kidney Failure Additional Instructions / Restrictions: Follow-up with your PCP and nephrology in the next 3 to 5 days to monitor your renal function. Discharge Orders/Prescriptions Prescriptions: New sodium bicarbonate 650 mg tablet 650 mg PO BID Qty: 20 RF: 0 Continued multivitamin 1 EACH tablet 1 tablet PO DAILY RF: 0 Discontinued lisinopril 20 MG tablet 20 mg PO DAILY RF: 0 Referrals: Ankush Uribe [Primary Care Provider] - In 1 Week Disposition Patient Disposition: Home, self care Inpatient E&M: 98003 Disch Hosp
== END 2020-12-03 13:55 | disposition home or self-care (01) | DRG 682 ==
LOC: ED 20:07 → MS3 23:12
PROVIDERS: Admitting Provider Hospitalist; Emergency Provider Emergency Medicine; Visit Provider Family Medicine
DX: N17.9 Acute kidney failure, unspecified (principal); E43 Unspecified severe protein-calorie malnutrition; E87.1 Hypo-osmolality and hyponatremia; E87.2 Acidosis; I10 Essential (primary) hypertension; R19.7 Diarrhea, unspecified; D72.829 Elevated white blood cell count, unspecified; Z68.32 Body mass index [BMI] 32.0-32.9, adult; E86.0 Dehydration; E86.1 Hypovolemia; Z79.899 Other long term (current) drug therapy
CPT/HCPCS: 36415; 51702; 76770; 80048; 80053; 82436; 82570; 83605; 83935; 84133; 84300; 84484; 85025; 87426; 87493; 87506; 93005; 97802; 99285; J7030; A4216

== ENCOUNTER → 2022-01-25 | Outpatient (CLI) | payer MEDICARE, BC, SELFPAY ==
[2022-01-25 20:25] LABS: AST(SGOT) 21 U/L (15-37); Alanine Aminotransfer ALT/SGPT 27 U/L (16-61); Alkaline Phosphatase 288 U/L (45-117); Anion Gap 5 (5-15); BUN 14 mg/dL (7-18); BUN/Creat Ratio 19.3 RATIO (10-20); Calcium,Total 8.5 mg/dL (8.5-10.1); Chloride 110 mmol/L (98-107); Creatinine, Serum 0.73 mg/dL (0.70-1.30); EST Glomerular Filtration Rate 114 mL/min (>60); Est Glom Filt Rate - Afr Amer 138 mL/min (>60); Globulin 3.1 g/dL (2.2-4.2); Glucose 88 mg/dL (74-106); Protein, Total 6.1 g/dL (6.4-8.2); Sodium Level 141 mmol/L (136-145)
== END | disposition home or self-care (01) ==
LOC: LABSPEC 15:09
PROVIDERS: Visit Provider Internal Medicine Hematology & Oncology
DX: C61 Malignant neoplasm of prostate (principal); C79.51 Secondary malignant neoplasm of bone
CPT/HCPCS: 80053

== ENCOUNTER 2022-04-30 15:33 | Emergency (ER) | payer MEDICARE, BC, SELFPAY ==
[2022-04-30 15:34] VITALS: BP 89/68; PULSE 88; RESP 18; TEMP 36.6; O2SAT 98; BMI 32.1
--- NOTE | 2022-04-30 15:58 | EDS_ITS ---
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 His chemotherapy caused some edema, so he was prescribed Lasix for the last 10 days, he just finished it and had some repeat labs, they show that his potassium is down to 2.5, creatinine is from 1.89-1.24, and his sodium is 130. Patient was sent in for IV potassium. His EKG was done in the office, just prior to being sent here. I reviewed it. Patient denies any complaints except for feeling tired and weak. He is still able to get around okay. He denies any fevers. [facility] Medical History (Updated 04/30/22 @ 20:[address] Coleman Gonzalez MD) HTN (hypertension) Prostate cancer metastatic to bone Home Medications multivitamin 1 tablet PO DAILY supplement 12/01/20 [History Last Taken 12/01/20 10:00] sodium bicarbonate 650 mg tablet 650 mg PO BID #20 tabs 12/03/20 [Rx Last Taken Unknown] abiraterone 250 mg tablet 250 mg PO DAILY 04/30/22 [History Last Taken Unknown] amlodipine 10 mg tablet 10 mg PO DAILY 04/30/22 [History Last Taken Unknown] dexamethasone 4 mg tablet 4 mg PO DAILY 04/30/22 [History Last Taken Unknown] furosemide 40 mg tablet 40 mg PO DAILY 04/30/22 [History Last Taken Unknown] metoprolol succinate 100 mg tablet,extended release 24 hr 100 mg PO DAILY 04/30/22 [History Last Taken Unknown] prednisone 5 mg tablet 5 mg PO DAILY 04/30/22 [History Last Taken Unknown] tamsulosin 0.4 mg capsule mg PO 04/30/22 [History Last Taken Unknown] Allergy/AdvReac Type Severity Reaction Status Date / Time No Known Allergies Allergy Verified 04/30/22 15:33 Social History Smoking Status: Never smoker ROS ROS ED Constitutional Constitutional ED: Reports fatigue and malaise; Denies chills or fever(s) Eyes Eyes: Denies change in vision or diplopia ENT ENT ED: Denies rhinorrhea or sore throat Cardiovascular Cardiovascular: Denies chest pain or palpitations Respiratory/Chest Respiratory/Chest: Denies cough or dyspnea Gastrointestinal Gastrointestinal: Denies abdominal pain, diarrhea, nausea or vomiting Genitourinary Genitourinary ED: Denies dysuria or hematuria Musculoskeletal Musculoskeletal: Denies back pain or neck pain Integumentary Denies abscess or rash Neurologic Neurologic: Denies headache(s), paresthesias or weakness Psychiatric Psychiatric: Denies anxiety or suicidal thoughts EXAM Physical Exam Const Vital Signs: 04/30/22 15:34 04/30/22 15:53 04/30/22 17:33 Temperature 97.8 F Temperature Source Temporal Pulse Rate 88 Respiratory Rate 18 Respiratory Effort Normal Non-Labored Respiratory Pattern Normal Blood Pressure 89/68 L 96/72 Blood Pressure Mean 75 80 Pulse Ox 98 Oxygen Delivery Method Room Air 04/30/22 19:36 Temperature Temperature Source Pulse Rate 76 Respiratory Rate 16 Respiratory Effort Respiratory Pattern Blood Pressure 118/75 Blood Pressure Mean 89 Pulse Ox 97 Oxygen Delivery Method Room Air Positive well nourished and well developed Constitutional Narrative: Well-appearing in no distress. Reading newspaper. Conversive in full sentences. General Appearance ED: well developed and NAD HEENT Reports moist mucous membranes normocephalic and atraumatic Eyes PERRL and EOMs intact bilaterally Neck full ROM and supple Resp normal respiratory effort and clear to auscultation bilaterally Cardio regular rate, regular rhythm and no murmurs Rate: Negative for tachycardic GI non-tender and non-distended Auscultation: normoactive bowel sounds Palpation: soft Back/Spine no CVA tenderness General Back: other FROM Extremity normal to inspection General Extremety ED: Negative for edema, pulses abnormal or tenderness General Extremity: Negative for edema or pulses abnormal Neuro oriented x3, CN's II-XII intact bilaterally and no sensory deficits noted Sensorium / Orientation: awake and alert Motor Exam: strength 5/5 throughout Skin no rashes or lesions noted and no wounds MDM MDM MDM Narrative Medical decision making narrative: Outside facility EKG is brought by the patient and I interpreted it myself. He has a leftward axis, he does have some nonspecific T wave abnormalities probably indicative of U waves, narrow complexes, no acute injury pattern. Sinus rhythm. I discussed with his oncologist Dr. Jiang she as well as the patient, both are in agreement to keep the patient out of the hospital if able. Therefore he was given oral potassium as well as IV potassium and the plan will be to give him 3 riders, one per hr 10 mEq each. Discharge Plan Triage Chief Complaint: Abn Labs ED Provider: Coleman Gonzalez Dx/Rx/DC Orders Clinical Impression: Hypokalemia due to excessive renal loss of potassium, Prostate cancer metastatic to bone Instructions: ED Hypokalemia Prescriptions: No Action multivitamin 1 EACH tablet 1 tablet PO DAILY sodium bicarbonate 650 mg tablet 650 mg PO BID Qty: 20 0RF furosemide 40 mg tablet 40 mg PO DAILY Label Comments: TAKE 3 TABLETS BY MOUTH ONCE DAILY metoprolol succinate 100 mg tablet extended release 24 hr 100 mg PO DAILY Label Comments: TAKE 1 TABLET BY MOUTH EVERY DAY prednisone 5 mg tablet 5 mg PO DAILY Label Comments: TAKE 1 TABLET BY MOUTH TWICE A DAY tamsulosin 0.4 mg capsule PO Label Comments: TAKE 1 CAPSULE BY MOUTH DAILY AT BEDTIME amlodipine 10 mg tablet 10 mg PO DAILY Label Comments: TAKE 1 TABLET BY MOUTH EVERY DAY dexamethasone 4 mg tablet 4 mg PO DAILY Label Comments: TAKE 2 TABLETS BY MOUTH TWICE THE DAY PRIOR TO AND THE DAY AFTER EACH CHEMOTHERAPY TREATMENT. abiraterone 250 mg tablet 250 mg PO DAILY Primary Care Provider: Ankush Uribe Referrals: Darion Castaneda DO [Med Staff - Active Staff] - (tuesday) Ankush Uribe [Primary Care Provider] - Disposition Disposition: Home, Self Care
[2022-04-30] MEDS: Potassium Chloride 10mEq/100mL 10 MEQ/100 ML IV.SOLN. 100 MEQ IV BOLUS ×3 (16:37→18:36)
[2022-04-30] MEDS: Potassium Chloride Oral Tablet 20 MEQ 60 MEQ PO (16:37)
[2022-04-30 17:33] VITALS: BP 96/72
[2022-04-30 19:36] VITALS: BP 118/75; PULSE 76; RESP 16; O2SAT 97
--- NOTE | 2022-04-30 20:18 | ED.RN ---
pt done with transfusion and is not waiting for discharge papers. iv dc'd left w/o paperwork
[2022-04-30 20:24] VITALS: BP 118/74; PULSE 75; RESP 16; O2SAT 97
== END 2022-04-30 20:26 | disposition home or self-care (01) ==
PROVIDERS: Emergency Provider Emergency Medicine; Visit Provider Emergency Medicine
DX: E87.6 Hypokalemia (principal); C79.51 Secondary malignant neoplasm of bone; C78.7 Secondary malignant neoplasm of liver and intrahepatic bile duct; C61 Malignant neoplasm of prostate; T45.1X5A Adverse effect of antineoplastic and immunosuppressive drugs, initial encounter; I10 Essential (primary) hypertension; Z79.899 Other long term (current) drug therapy
CPT/HCPCS: 96365; 96366; 99282; J7030; A4216